=== PATIENT | female | born 1960 | race Caucasian/White ===

== ENCOUNTER 2018-09-25 16:11 | Inpatient (IN) ==
[2018-09-25] MEDS ORDERED: ASPIRIN PO ONE (16:46)
[2018-09-25] MEDS ORDERED: DUONEB (A & A) INH ONE (17:10)
[2018-09-25] MEDS ORDERED: XANAX MISC ONE (17:11)
[2018-09-25] MEDS ORDERED: SOLU-MEDROL IV ONE (17:12)
[2018-09-25 17:27] LABS: BASO# 0.02 X1000 (0.0-0.2); BASO% 0.3 % (0.0-0.8); EOS# 0.03 X1000 (0.0-0.7); EOS% 0.4 % (0.0-10.0); HEMOGLOBIN 13.6 g/dL (12.0-16.0); LYMPH# 0.69 X1000 (1.2-3.4); LYMPH% 9.2 % (20.5-51.1); MCH 30.9 PG (27-31); MCV 90.9 FL (81-99); MONO# 1.73 X1000 (0.11-0.59); MONO% 23.1 % (1.7-9.3); MPV 9.7 FL (7.4-10.4); NEUT# 5.01 X1000 (1.4-6.5); PLT 257 X1000 (130-400); RDW 13.3 % (11.5-14.5); WBC 7.48 X1000 (4.8-10.8)
[2018-09-25 17:32] LABS: INR 1.02; PROTIME 14.2 Seconds (11.0-16.0)
[2018-09-25 17:33] LABS: PTT 36.5 Seconds (22.3-41.8)
[2018-09-25 17:39] LABS: BANDS 24 % (0-1); BASO 1 % (0-1); LYMPHS 15 % (21-51); MONO 17 % (1-9); SEGS 43 % (42-75)
[2018-09-25 17:41] LABS: AGAP 12; ALB/GLOB RATIO 1.6; ALBUMIN 4.1 g/dL (3.5-5.0); ALKALINE PHOSPHATASE 80 U/L (32-104); BUN 15 mg/dL (8-22); CALCIUM 9.1 mg/dL (8.8-10.2); CHLORIDE 100 mmol/L (98-107); CK PROFILE 145 U/L (24-173); COSMO 279; CREATININE 0.6 mg/dL (0.5-0.9); ESTIMATED GFR > 60; GLUCOSE 112 mg/dL (70-104); GOT 23 U/L (10-30); GPT 25 U/L (10-36); POTASSIUM 4.6 mmol/L (3.5-5.1); SODIUM 139 mmol/L (136-145); TCO2 27 mmol/L (25-35); TOTAL BILIRUBIN 0.34 mg/dL (0.20-1.00); TOTAL PROTEIN 6.7 g/dL (6.3-8.3)
--- NOTE | 2018-09-25 17:41 | Diag Imaging Result Doc PS360 ---
EXAM: CHEST-2 VIEWS 09/25/2018 HISTORY: SOB TECHNIQUE: PA and lateral chest COMMENT: There is COPD. There is increased interstitial opacity in the lung bases. This is slightly worse than on 10/09/2017. The heart size and pulmonary vascularity are within normal limits. IMPRESSION: COPD with superimposed pulmonary edema plus minus pneumonia. Electronically signed by Isrrael Soria 09/25/2018 5:38 PM
[2018-09-25] MEDS ORDERED: DUONEB (A & A) ONE (17:47)
[2018-09-25 17:57] LABS: ALLEN TEST YES; BE 2.9 mmoll (-3.0-3.0); BLOOD TYPE ARTERIAL; HCO3-(ACT) 27.1 mmoll (20.0-26.0); METHB 1.4 % (0.0-1.5); O2(CT) 18.4 mL/dL (15.0-23.0); O2HB 95.2 % (95.0-99.0); PO2(98.6) 91 mmHg (60-100); SAMPLE BLOOD; SAO2 98.4 % (95.0-100.0); THB 13.7 g/dL (11.5-17.4); pH(98.6) 7.35 (7.35-7.45)
[2018-09-25 17:59] LABS: MODALITY CANNULA
[2018-09-25 18:00] LABS: PCO2(98.6) 54 mmHg (35-45)
[2018-09-25] MEDS ORDERED: LEVAQUIN 750 MG/D5W 750 MG/150 ML IVPB IV ONE (18:21)
--- NOTE | 2018-09-25 19:11 | PROVIDER DOCUMENTATION ---
This chart was entered by Sadie Yan Scribe, acting as scribe for Adolfo Crisostomo DO. HPI-Respiratory General - General Chief Complaint: Shortness of Breath Stated Complaint: copd , sob Time Seen by Provider: 09/25/18 16:24 Source: patient, EMS Allergies/Adverse Reactions: Patient Allergies Allergy/AdvReac Type Severity Reaction Status Date / Time No Known Allergies Allergy Verified 09/25/18 18:41 Home Medications: Home Medication List Medication Instructions Recorded Confirmed Last Taken Type Albuterol 2.5MG/Ipratrop 0.5MG 3 ml INH PL2ULTY #120 neb 08/04/17 09/25/18 09/25/18 Rx [Duoneb] - History of Present Illness-Resp Nature of Presenting Problem: 57 yowf presents to the ed with c/o sob. pt has hx copd and is a smoker. pt on exam is at 5LPM 94%, cough, nausea and tightness in thoracic back. pt speaking in 2-4 word sentences Quality of Pain: reports: fullness Severity in ED: reports: moderate Onset/Duration: reports: 3 days ago Timing: reports: still present, intermittent, getting worse Cough Quality/Degree: reports: moderate, productive cough Episode Frequency: chronic episodes Current Respiratory Medication Therapy: Initiated see nurses note Modifying Factors: improves with: albuterol nebulizer, oxygen, sitting upright. worse with: exertion, lying down Associated Symptoms: reports: cough, shortness of breath, wheezing, other (nausea and thoracic back pain). denies: chest pain/soreness, fever/chills, headache Similar Symptoms Previously?: Yes (copd) Recently seen or treated by another doctor?: No Review of Systems - Adult - REVIEW OF SYSTEMS - ADULT Constitutional: denies: chills, fever Eyes: reports: no symptoms reported Ears, Nose, Mouth & Throat: reports: no symptoms reported Cardiovascular: denies: chest pain, palpitations, syncope Respiratory: reports: see HPI, chronic cough, dyspnea on exertion, shortness of breath, wheezing Gastrointestinal: reports: nausea. denies: abdominal pain, diarrhea, vomiting Genitourinary: reports: no symptoms reported Musculoskeletal: reports: see HPI, back pain (thoracic tightness). denies: neck pain Integumentary: reports: no symptoms reported Neurological: reports: no symptoms reported Psychiatric: reports: no symptoms reported Endocrine: reports: no symptoms reported Hematologic/Lymphatic: reports: no symptoms reported Allergic/Immunologic: reports: no symptoms reported All Other Systems: Reviewed and Negative Past History - Adult - PAST MEDICAL HISTORY-ADULT Review of Records: reports: Nursing Assessment Review, Medications Reviewed Major Childhood Illnesses: reports: denies history Cardiovascular: reports: denies history Respiratory: reports: COPD Gastrointestinal: reports: GERD Obstetrical/Gynecological: reports: denies history Genitourinary: reports: denies history Musculoskeletal: reports: denies history Hand Dominance: Right Handed Neurological: reports: denies history Endocrine/Immune: reports: denies history Other Conditions: reports: denies history - PRIOR SURGERIES/PROCEDURES Surgical/Procedure History: reports: cholecystectomy - IMMUNIZATION STATUS Childhood Immunizations: See Nurse Assessment Flu Vaccine: See Nurse Assessment - FAMILY HISTORY Family History: reviewed, not pertinent - SOCIAL HISTORY Smoking: cigarettes, less than 1 pack/day Substance Use: denies Alcohol Use Frequency: never Living Situation: family Physical Exam-General - PHYSICAL EXAM-ADULT Initial Vital Signs Reviewed: Yes - CONSTITUTIONAL General Appearance: alert, moderate distress, thin - EYES Eyes: PERRL/EOMI, pink conjunctivae - HEAD, EARS, NOSE, MOUTH & THROAT HENMT: moist mucous membranes, other (no teeth) - NECK Neck: non-tender, normal inspection - RESPIRATORY Respiratory: respiratory distress (moderate), decreased breath sounds (lower half), accessory muscle use, wheezing (bilateral upper), increased rate (24) - CARDIOVASCULAR Cardiovascular: normal peripheral pulses, JVD, tachycardia (102) - GASTROINTESTINAL (ABDOMEN) Abdominal Exam: normal bowel sounds, non tender, soft - LYMPHATIC Lymphatic: no adenopathy - MUSCULOSKELETAL Back Exam: normal inspection, no CVA tenderness, no vertebral tenderness, other (thoracic tightness) Extremity: normal range of motion, non-tender, normal inspection, no pedal edema , no calf tenderness, normal capillary refill, pelvis stable - SKIN Integumentary: normal color, normal turgor, warm/dry - NEUROLOGIC Neurologic: grossly normal, no motor/sensory deficits - PSYCHIATRIC Psych/Mental Status: normal thought content, normal thought process, oriented x 3, anxious Progress - PLAN OF CARE/RESULTS Progress/Plan/Lab Results: Vital Signs - 8 hr 09/25/18 16:30 09/25/18 16:33 09/25/18 17:02 Temperature 98.1 F Pulse Rate 98 H Respiratory Rate 20 Blood Pressure 110/73 100/73 102/80 O2 Sat by Pulse Oximetry 95 85 L 95 09/25/18 18:00 09/25/18 18:01 Temperature Pulse Rate 104 H 111 H Respiratory Rate 22 Blood Pressure O2 Sat by Pulse Oximetry 98 97 Laboratory Results - last 24 hr 09/25/18 09/25/18 09/25/18 16:55 16:55 16:55 WBC 7.48 RBC 4.40 Hgb 13.6 Hct 40.0 MCV 90.9 MCH 30.9 MCHC 34.0 RDW Std Deviation 13.3 Plt Count 257 MPV 9.7 Immature Gran % (Auto) 0.0 Neut % (Auto) 67.0 Lymph % (Auto) 9.2 L [place] % (Auto) 23.1 H Eos % (Auto) 0.4 Baso % (Auto) 0.3 Immature Gran # (Auto) 0.00 Neut # (Auto) 5.01 Lymph # (Auto) 0.69 L [place] # (Auto) 1.73 H Eos # (Auto) 0.03 Baso # (Auto) 0.02 Segmented Neutrophils 43 Band Neutrophils 24 H Lymphocytes 15 L Monocytes 17 H Basophils 1 PT INR PTT (Actin FS) Specimen Type Sample Site pH pCO2 pO2 HCO3 Base Excess Oxyhemoglobin ABG O2 Sat (Calculated) ABG O2 Saturation ABG Carboxyhemoglobin ABG Methemoglobin René Test A-a O2 Difference Total Hemoglobin Lactate Liter Flow Blood Gas Modality FiO2 % Sodium 139 Potassium 4.6 Chloride 100 Carbon Dioxide 27 Anion Gap 12 BUN 15 Creatinine 0.6 Estimated GFR/1.73 m2 > 60 BUN/Creatinine Ratio 25 Glucose 112 H Calculated Osmolality 279 Calcium 9.1 Total Bilirubin 0.34 AST 23 ALT 25 Alkaline Phosphatase 80 Creatine Kinase 145 Troponin T [id number] Pept 281 H Total Protein 6.7 Albumin 4.1 Globulin 2.6 Albumin/Globulin Ratio 1.6 09/25/18 09/25/18 09/25/18 16:55 16:55 17:45 WBC RBC Hgb Hct MCV MCH MCHC RDW Std Deviation Plt Count MPV Immature Gran % (Auto) Neut % (Auto) Lymph % (Auto) [place] % (Auto) Eos % (Auto) Baso % (Auto) Immature Gran # (Auto) Neut # (Auto) Lymph # (Auto) [place] # (Auto) Eos # (Auto) Baso # (Auto) Segmented Neutrophils Band Neutrophils Lymphocytes Monocytes Basophils PT 14.2 INR 1.02 PTT (Actin FS) 36.5 Specimen Type ARTERIAL Sample Site R RADIAL pH 7.35 pCO2 54 H* pO2 91 HCO3 27.1 H Base Excess 2.9 Oxyhemoglobin 95.2 ABG O2 Sat (Calculated) 18.4 ABG O2 Saturation 98.4 ABG Carboxyhemoglobin 1.80 ABG Methemoglobin 1.4 René Test YES A-a O2 Difference 127.0 Total Hemoglobin 13.7 Lactate 0.70 Liter Flow 5.0 Blood Gas Modality CANNULA FiO2 % 40.0 Sodium Potassium Chloride Carbon Dioxide Anion Gap BUN Creatinine Estimated GFR/1.73 m2 BUN/Creatinine Ratio Glucose Calculated Osmolality Calcium Total Bilirubin AST ALT Alkaline Phosphatase Creatine Kinase Troponin T < 0.010 [id number]-Jrihisiusvh Pept Total Protein Albumin Globulin Albumin/Globulin Ratio Orders Category Date Time Status Cardiac Monitoring DIRECTED Care 09/25/18 16:46 Active Oxygen Therapy- ED Nursing DIRECTED Care 09/25/18 16:46 Active CHEST-2 VIEWS [RAD] Stat Exams 09/25/18 16:46 Completed CHEST-PORTABLE [RAD] Stat Exams 09/25/18 17:11 Ordered ABG [RESP] Routine Lab 09/25/18 17:45 Completed BLOOD CULTURE [BLDCUL] Stat Lab 09/25/18 18:59 Ordered CBC WITH ELECTRONIC DIFF [HEME] Stat Lab 09/25/18 16:55 Completed CK PROFILE [SP CHEM] Stat Lab 09/25/18 16:55 Completed COMPREHENSIVE METABOLIC PANEL [CHEM] Stat Lab 09/25/18 16:55 Completed PRO B-NATRIURETIC PEPTIDE Stat Lab 09/25/18 16:55 Completed PROTIME WITH INR [COAG] Stat Lab 09/25/18 16:55 Completed PTT [COAG] Stat Lab 09/25/18 16:55 Completed TROPONIN T Stat Lab 09/25/18 16:55 Completed Albuterol 2.5MG/Ipratrop 0.5MG [Duoneb (A & A)] Med 09/25/18 17:47 Discontinued 3 ml .ROUTE .STK-MED ONE Albuterol 2.5MG/Ipratrop 0.5MG [Duoneb (A & A)] Med 09/25/18 17:10 Discontinued 3 ml INH NOW ONE Alprazolam [Xanax] Med 09/25/18 17:11 Discontinued 0.5 mg MISC NOW ONE Aspirin Med 09/25/18 16:46 Discontinued 325 mg PO NOW ONE Levofloxacin 750 mg/D5w [Levaquin 750 mg/D5w] Med 09/25/18 18:21 Active 750 mg in 150 ml IV NOW Methylprednisolone Sod Succ [Solu-Medrol] Med 09/25/18 17:12 Discontinued 125 mg IV NOW ONE Aerosol Treatments Routine Oth 09/25/18 17:10 Completed Aerosol Treatments Stat Oth 09/25/18 17:10 Completed CP/SOB/Palp >45 yrs of Age Stat Oth 09/25/18 16:46 Ordered EKG [EKG] Stat Ther 09/25/18 16:46 Ordered Result Diagrams: 09/25/18 16:55 09/25/18 16:55 - REASSESSMENT Reassessment #1 Time Reassessed: 17:22 Status: unchanged Reassessment #2 Status: improving (DISCUSSED XRAYS,LABS ADMISSIONS) - EKG 1 Time of EKG reading by physician:: 16:33 EKG Read and Signed by:: Adolfo Crisostomo EKG Interpretation (*Must complete 3 of following elements*): Abnormal Rate: 119 Rhythm: sinus tachycardia with short pr [place]: right QRS: other (right atrial enlargement/pulmonary disease pattern) OK Interval: normal ST Wave: normal Comments: nonspecific ST and T wave abnormality - CONSULTS/PCP/HOSPITALIST Notification #1 *Consult/PCP/Hospitalist*: Time Discussed: 19:05 (ADMISSION ) Departure - Departure Date of Disposition Decision: 09/25/18 Time of Disposition Decision: 19:04 DIAGNOSIS: COPD exacerbation, Respiratory distress, acute, Pneumonia Disposition: ADMITTED INPATIENT 09 Certified Medical Emergency: Emergent Condition: Stable Referrals and Follow-Ups: None,PCP [Primary Care Provider] - Discharge Education: Steps to Quit Smoking, [id number] - Critical Care Note This patient required my direct & personal management of CC.: Yes Total Time (mins): 39 Critical Care Statement: This patient required my direct personal management to treat or rule out processes, the absence of which, could potentiallly result in sudden, clinically significant life or limb threatening deterioration. Attestation - Physician/ MARYJANE Attestation Patient care was provided by Advanced Practice Provider:: No The physician spent face to face time with patient:: Yes Advanced Practice Provider documentation review:: Supervising physician onsite and consulted in the evaluation and care of this patient. The physician did have a face to face encounter with the patient. This chart was documented by the indicated scribe, (Sadie Yan Scribe) and accurately reflects the services I performed and decisions made by me, Adolfo Crisostomo DO, as attested by the provider's signature.
[2018-09-25] MEDS ORDERED: LEVAQUIN PO ONE (19:15)
--- NOTE | 2018-09-25 20:36 | HISTORY AND PHYSICAL ---
CHIEF COMPLAINT: Shortness of breath. HISTORY OF PRESENT ILLNESS: This 57-year-old white female states that 2 days prior to admission, she began to experience worsening shortness of breath. She stated for inexplicable reason she had fever to 103. Although she has a routine hacking cough, she began coughing up little bits of material over the last 2 days as well. She had progressive shortness of breath, worsening wheezing and difficulty catching her breath at all. She came to the emergency room and was diagnosed with an acute exacerbation of COPD and is admitted to the hospitalist service. It appears according to the computer record that she has not been admitted since sometime last year in July. Her presentation was almost identical. PAST MEDICAL HISTORY: 1. The patient denies any problems other than COPD. She is oxygen dependent at 3 L nasal cannula. I am not sure who writes that prescription for her. 2. The patient is still a tobacco user. In the past she has been a pack per day but she says it is cut down significantly. ALLERGIES: No known drug allergies. PRESENT MEDICATIONS: Albuterol aerosols q.4 hours. REVIEW OF SYSTEMS: Patient denies any further fever other than that on Friday night when it went to 103. She has not had any shaking chills or rigors. She has a cough which is minimally productive. She has difficulty moving air. She continues to wheeze. She has not had any nausea or vomiting. She has no abdominal pain. She denies any genitourinary complaints. Her neuro psych has been intact and at baseline. PHYSICAL EXAMINATION: The patient is a very thin white female who is working to breathe but is not in extremis. HEENT: Sclerae are anicteric. The patient is edentulous. Coloration and hydration of the oral mucosa is roughly normal. NECK: Very thin. There is no lymphadenopathy. There are no bruits heard. CARDIOVASCULAR: Regular, tachycardia at approximately 110 beats per minute the time my examination. LUNGS: The patient has very poor air movement and has a body habitus consistent with someone with severe emphysema. She is not moving air well. She speaks in 2 to 4 words short bursts. Again, she is working to breathe, but is not in extremities right now. ABDOMEN: Bowel sounds are present. Nondistended. EXTREMITIES: There is no peripheral edema. Peripheral pulses are palpable in the dorsalis pedis. NEUROPSYCHIATRIC: The patient is alert, oriented, conversive and appropriate. Her mood is appropriate as well. LABORATORY: White count 7.48, hemoglobin 13.6. Serum electrolytes are normal. BUN 15, creatinine 0.6. Liver function tests are normal. CK and troponin are normal. ProBNP was 281. ABG showed a respiratory acidosis with a pH 7.35, pCO2 54, PO2 of 91 and 98% saturated on 5 L nasal cannula. ASSESSMENT AND PLAN: 1. The patient will be admitted to the hospital. She will have q.4 hour aerosol treatments. We will continue the steroids which were initiated in the emergency room at a slightly lower dose and rate. I am a bit reluctant to continue the antibiotics but since she was given some in the emergency room and she did have fever with her initial symptoms on Friday, we will continue some Levaquin but by p.o. route. 2. The patient will be activity limited to bedrest with bathroom privileges. She will have oxygen at 5 L. She will have a soft diet given that she is edentulous. 3. Expected length of stay is anywhere from 2 to 4 days, assuming that we can rapidly turn around her breathing. 4. At discharge, the patient is likely to need refills of prescriptions as she has no PCP. 5. Resuscitation status full code. cc: Domenic Deluna MD
[2018-09-25] MEDS ORDERED: ZOFRAN PO PRN (21:41)
[2018-09-25] MEDS ORDERED: NS 1,000 ML IV ONE (21:41)
[2018-09-25] MEDS: DUONEB (A & A) INH SCH ×2 (23:24)
[2018-09-26] MEDS: SOLU-MEDROL IV SCH ×3 (02:18→17:56)
[2018-09-26] MEDS: TYLENOL PO PRN ×2 (02:20→21:49)
[2018-09-26] MEDS: DUONEB (A & A) INH SCH ×6 (03:39→23:26)
[2018-09-26 05:52] LABS: ALLEN TEST YES; BE 1.1 mmoll (-3.0-3.0); BLOOD TYPE ARTERIAL; HCO3-(ACT) 25.8 mmoll (20.0-26.0); METHB 1.4 % (0.0-1.5); O2(CT) 17.6 mL/dL (15.0-23.0); O2HB 96.8 % (95.0-99.0); PO2(98.6) 166 mmHg (60-100); SAMPLE BLOOD; SAO2 99.4 % (95.0-100.0); THB 12.7 g/dL (11.5-17.4); pH(98.6) 7.33 (7.35-7.45)
[2018-09-26 05:53] LABS: MODALITY CANNULA
[2018-09-26 05:58] LABS: PCO2(98.6) 53 mmHg (35-45)
[2018-09-26 07:36] LABS: HEMATOCRIT 40.4 % (37.0-47.0); HEMOGLOBIN 13.5 g/dL (12.0-16.0); LYMPH# 0.45 X1000 (1.2-3.4); MCH 30.9 PG (27-31); MCHC 33.4 g/dL (33-37); MCV 92.4 FL (81-99); MONO% 5.3 % (1.7-9.3); MPV 9.5 FL (7.4-10.4); NEUT# 3.11 X1000 (1.4-6.5); NEUT% 82.7 % (42.2-75.2); PLT 257 X1000 (130-400); RBC 4.37 XMIL (4.2-5.4); RDW 13.3 % (11.5-14.5); WBC 3.76 X1000 (4.8-10.8)
[2018-09-26 07:47] LABS: AGAP 10; BUN 20 mg/dL (8-22); CALCIUM 8.4 mg/dL (8.8-10.2); CHLORIDE 98 mmol/L (98-107); COSMO 278; CREATININE 0.5 mg/dL (0.5-0.9); ESTIMATED GFR > 60; GLUCOSE 120 mg/dL (70-104); POTASSIUM 4.9 mmol/L (3.5-5.1); SODIUM 137 mmol/L (136-145); TCO2 29 mmol/L (25-35)
--- NOTE | 2018-09-26 13:48 | PROGRESS NOTE ---
DATE: 09/26/2018 SUBJECTIVE: Ms Walsh is breathing a little better, feels a little better. OBJECTIVE: Vital signs: Temperature 98 degrees, pulse 74, respirations 18, blood pressure 89/55. HEENT: Pupils are equal and round. Lungs: Clear in all lung [place]. Cardiovascular: Regular rhythm and rate without murmur or S3. ABDOMEN: Soft. LABORATORY DATA: From yesterday, white count 3760, hematocrit is 40, platelet count 257,000. Sodium 137, potassium 4.9, chloride 98, BUN 20, creatinine 0.5. Blood gases from yesterday afternoon, pH was 7.33, pCO2 53, PO2 166 which came up from 91, this is on 5 L nasal cannula, 40%. ASSESSMENT AND PLAN: This is a 67-year-old who, 2 days prior to this admission, began experiencing worsening shortness of breath. She had a fever of 103 degrees, a routine cough, began coughing up little bits of material, seemed to be more productive and progressive shortness of breath. She had 4 hour aerosol treatments q.4 hours and some steroids were started. She is getting Levaquin p.o. route. Note that her chest x-ray from yesterday, COPD with superimposed pulmonary edema plus-minus possible pneumonia. Treating for possible pneumonia, underlying COPD. Continue present regimen. She is on methylprednisone this concludes dictation. cc: René Vu MD
[2018-09-26] MEDS ORDERED: LEVAQUIN PO SCH (18:00)
[2018-09-27] MEDS: SOLU-MEDROL IV SCH ×2 (02:42→10:22)
[2018-09-27] MEDS: DUONEB (A & A) INH SCH ×3 (03:05→10:59)
--- NOTE | 2018-09-27 08:21 | Diag Imaging Result Doc PS360 ---
EXAM: CHEST-PORTABLE 09/27/2018 HISTORY: copd, pneumonia TECHNIQUE: AP portable at 0811 COMMENT: There are increased interstitial markings in the lung bases bilaterally. There is lungs are hyperinflated. The heart size and pulmonary vascularity are within normal limits. Compared to 09/25/2018 there has been some clearing of the left costophrenic angle. IMPRESSION: COPD. Slightly improved pulmonary edema and/or pneumonia. Electronically signed by Isrrael Soria 09/27/2018 8:18 AM
[2018-09-27 11:52] VITALS: BP 89/44
--- NOTE | 2018-09-27 12:50 | DISCHARGE SUMMARY ---
ADMISSION DATE: 09/25/2018 DISCHARGE DATE: 09/27/2018 PRIMARY CARE PHYSICIAN: She has no primary care physician. HISTORY OF PRESENT ILLNESS: This is a 57-year-old who, 2 days prior to admission, began experiencing worsening shortness of breath. She had a fever of 103 and routine hacking cough, and coughing up bits of material. The last couple days, progressive shortness of breath, worsening wheezing. Came to the emergency room. Appeared to be in acute exacerbation of COPD with some wheezing and bronchospasm. PAST MEDICAL HISTORY: Really denies any other problems other than COPD and still a tobacco user. HOSPITAL COURSE: On admission, chest x-ray, COPD, superimposed pulmonary edema, plus or minus some pneumonia. Started her on antibiotics and bronchodilators, albuterol and ipratropium, Levaquin 500 mg p.o. daily. I gave her some methylprednisone 40 mg IV q.8 and she showed quite a remarkable improvement. On 09/27/2018, she requested to go home so we will discharge her home. She has home oxygen already. She has DuoNebs at home. I will give her a Medrol Dosepak and give her 7 days of Levaquin 500 mg daily. Note that blood cultures were negative. Nasopharyngeal screen was negative for influenza A and B. cc: René Vu MD
--- NOTE | 2018-09-28 08:31 | EKG Report ---
Test Performed on : 09/25/2018 4:33:13 PM Test Reason : SOB Blood Pressure : / mmHG Vent. Rate : 119 BPM Atrial Rate : 119 BPM P-R Int : 100 ms QRS Dur : 056 ms QT Int : 296 ms P-R-T Axes : 084 090 096 degrees QTc Int : 416 ms Sinus tachycardia. with short FL Right atrial enlargement Rightward axis Pulmonary disease pattern Nonspecific ST and T wave abnormality Abnormal ECG When compared with ECG of 09-OCT-2017 23:07, Nonspecific T wave abnormality, worse in Inferior leads Unconfirmed Result
== END 2018-09-27 14:25 | disposition home or self-care (01) | DRG 190 ==
LOC: SUPCPDRO → ED 16:11 → EDIPHOLD 21:42 → SUATTDRO 21:42 → 3N 23:50
PROVIDERS: ATTEND Emergency Medicine
CPT/HCPCS: 71010; 71020; 71045; 71046; 80048; 80053; 82550; 82805; 83880; 84484; 85025; 85610; 85730; 87040; 87275; 87276; 87804; 93005; 94640; 94761; 96365; 96366; 96375; 99285; A9270; J1956; J2920; J2930; J7030

== ENCOUNTER 2019-08-03 12:15 | Inpatient (IN) ==
[2019-08-03] MEDS ORDERED: SOLU-MEDROL IV ONE (12:36)
[2019-08-03] MEDS ORDERED: ZITHROMAX PO ONE (12:36)
[2019-08-03] MEDS ORDERED: ROCEPHIN 1 GM in NS 50 ML IV ONE (12:36)
--- NOTE | 2019-08-03 12:39 | EKG Report ---
Test Performed on : 08/03/2019 12:33:08 PM Test Reason : Blood Pressure : / mmHG Vent. Rate : 110 BPM Atrial Rate : 110 BPM P-R Int : 116 ms QRS Dur : 074 ms QT Int : 310 ms P-R-T Axes : 080 089 073 degrees QTc Int : 419 ms Sinus tachycardia. Right atrial enlargement Borderline ECG When compared with ECG of 25-SEP-2018 16:33, Nonspecific T wave abnormality no longer evident in Inferior leads Unconfirmed Result
[2019-08-03 12:53] LABS: ALLEN TEST YES; BE 2.3 mmoll (-3.0-3.0); BLOOD TYPE ARTERIAL; HCO3-(ACT) 26.5 mmoll (20.0-26.0); METHB 0.2 % (0.0-1.5); PCO2(98.6) 39 mmHg (35-45); PO2(98.6) 51 mmHg (60-100); SAMPLE BLOOD; SAO2 94.3 % (95.0-100.0); THB 13.8 g/dL (11.5-17.4); pH(98.6) 7.44 (7.35-7.45)
[2019-08-03 12:55] LABS: MODALITY ROOM AIR; O2HB 87.7 % (95.0-99.0)
[2019-08-03 12:56] LABS: BASO# 0.03 X1000 (0.0-0.2); BASO% 0.3 % (0.0-0.8); EOS# 0.01 X1000 (0.0-0.7); EOS% 0.1 % (0.0-10.0); HEMATOCRIT 43.6 % (37.0-47.0); HEMOGLOBIN 14.7 g/dL (12.0-16.0); IMM GRAN# 0.03 X1000 (0.0-0.04); IMM GRAN% 0.3 % (0.0-0.5); LYMPH# 1.29 X1000 (1.2-3.4); LYMPH% 11.4 % (20.5-51.1); MCH 31.8 PG (27-31); MCHC 33.7 g/dL (33-37); MCV 94.4 FL (81-99); MONO# 1.26 X1000 (0.11-0.59); MONO% 11.2 % (1.7-9.3); MPV 9.2 FL (7.4-10.4); NEUT# 8.66 X1000 (1.4-6.5); NEUT% 76.7 % (42.2-75.2); PLT 226 X1000 (130-400); RBC 4.62 XMIL (4.2-5.4); RDW 12.4 % (11.5-14.5); WBC 11.28 X1000 (4.8-10.8)
--- NOTE | 2019-08-03 13:11 | Diag Imaging Result Doc PS360 ---
EXAM: CHEST-2 VIEWS HISTORY: short of breath TECHNIQUE: Two views COMPARISON: 05/27/2019 FINDINGS: The lungs are hyperexpanded. The heart is not enlarged. The vessels are small. There are no infiltrates. No pleural effusions. IMPRESSION: Interval Electronically signed by Ezekiel Pierson 08/03/2019 1:09 PM
[2019-08-03 13:15] LABS: AGAP 15; ALB/GLOB RATIO 1.4; ALBUMIN 4.1 g/dL (3.5-5.0); ALKALINE PHOSPHATASE 72 U/L (32-104); BUN 14 mg/dL (8-22); CALCIUM 9.5 mg/dL (8.8-10.2); CHLORIDE 93 mmol/L (98-107); COSMO 270; CREATININE 0.7 mg/dL (0.5-0.9); ESTIMATED GFR > 60; GLUCOSE 87 mg/dL (70-104); GOT 17 U/L (10-30); GPT 18 U/L (10-36); SODIUM 135 mmol/L (136-145); TCO2 27 mmol/L (25-35); TOTAL BILIRUBIN 1.19 mg/dL (0.20-1.00); TOTAL PROTEIN 7.1 g/dL (6.3-8.3)
[2019-08-03 13:48] LABS: URINE SOURCE CLEAN CATCH
[2019-08-03 13:51] LABS: BILIRUBIN URINE NEGATIVE (NEGATIVE); BLOOD URINE SMALL (NEGATIVE); COLOR YELLOW; GLUCOSE URINE NEGATIVE (NEGATIVE); KETONE URINE 100 mg/dL (NEGATIVE); LEUKOCYTES URINE MODERATE (NEGATIVE); NITRITE URINE NEGATIVE (NEGATIVE); PROTEIN URINE 50 mg/dL (NEGATIVE); SP GRAVITY URINE 1.025; TURBIDITY URINE CLEAR (CLEAR); UROBILINOGEN URINE 8 mg/dL (NORMAL)
[2019-08-03 13:58] LABS: UR EPITHELIAL CELLS <10 /HPF (<10); URINE BACTERIA NEGATIVE /HPF; URINE RBC <10 /HPF (<10); URINE WBC <10 /HPF (<10)
--- NOTE | 2019-08-03 15:02 | PROVIDER DOCUMENTATION ---
This chart was entered by Sadie Yan Scribe, acting as scribe for Reji Crisostomo MD. HPI-Respiratory General - General Chief Complaint: Shortness of Breath Stated Complaint: SOB since yesterday Time Seen by Provider: 08/03/19 12:30 Source: patient, EMS ([facility]) Allergies/Adverse Reactions: Patient Allergies Allergy/AdvReac Type Severity Reaction Status Date / Time No Known Allergies Allergy Verified 09/25/18 18:41 Home Medications: Home Medication List Medication Instructions Recorded Confirmed Last Taken Type Albuterol 2.5MG/Ipratrop 0.5MG 08/03/19 Unknown History [Duoneb (A & A)] Albuterol Sulfate [Proair Hfa] 08/03/19 Unknown History Budesonide/Formoterol Fumarate 08/03/19 08/03/19 Unknown History [Symbicort 160-4.5 Mcg Inhaler] - History of Present Illness-Resp Nature of Presenting Problem: 58 yowf presents to the ed via ems with worsening sob since last night. pt is still currently 1ppd smoker with copd. pt on exam is thin in mild distress and uses continuos home O2 at 2LPM but has 35 feet of tubing Quality of Pain: reports: none Severity in ED: reports: moderate Onset/Duration: reports: last night (chronic sob but became worse last night) Timing: reports: still present, constant, getting worse Cough Quality/Degree: reports: mild, dry cough Episode Frequency: chronic episodes Current Respiratory Medication Therapy: Initiated see nurses note Modifying Factors: improves with: oxygen, sitting upright. worse with: exertion, coughing Associated Symptoms: reports: cough, shortness of breath. denies: chest pain/soreness, sweaty, wheezing Similar Symptoms Previously?: Yes (copd) Recently seen or treated by another doctor?: No Review of Systems - Adult - REVIEW OF SYSTEMS - ADULT Constitutional: denies: chills, fever Eyes: reports: no symptoms reported Ears, Nose, Mouth & Throat: reports: no symptoms reported Cardiovascular: denies: chest pain, palpitations Respiratory: reports: see HPI, chronic cough, dyspnea on exertion, shortness of breath. denies: wheezing Gastrointestinal: denies: abdominal pain, diarrhea, nausea, vomiting Genitourinary: reports: no symptoms reported Musculoskeletal: reports: no symptoms reported Integumentary: reports: no symptoms reported Neurological: denies: dizziness/vertigo, headache/migraines Psychiatric: reports: no symptoms reported Endocrine: reports: no symptoms reported Hematologic/Lymphatic: reports: no symptoms reported Allergic/Immunologic: reports: no symptoms reported All Other Systems: Reviewed and Negative Past History - Adult - PAST MEDICAL HISTORY-ADULT Review of Records: reports: Nursing Assessment Review, Medications Reviewed, Social history reviewed & non-contributory. Major Childhood Illnesses: reports: denies history Cardiovascular: reports: denies history Respiratory: reports: COPD, lung disease Gastrointestinal: reports: denies history Obstetrical/Gynecological: reports: denies history Genitourinary: reports: denies history Musculoskeletal: reports: denies history Neurological: reports: denies history Psychiatric: reports: denies history Endocrine/Immune: reports: denies history Other Conditions: reports: denies history - PRIOR SURGERIES/PROCEDURES Surgical/Procedure History: reports: cholecystectomy - IMMUNIZATION STATUS Childhood Immunizations: See Nurse Assessment Flu Vaccine: See Nurse Assessment - FAMILY HISTORY Family History: reviewed, not pertinent - SOCIAL HISTORY Smoking: cigarettes, greater than 1 pack/day Provider spent 3-5 mins advising pt. on dangers of tobacco.: Discussed manners to quit use, and f/u contacts for add'l counseling. Substance Use: denies Alcohol Use Frequency: never Living Situation: alone Physical Exam-General - PHYSICAL EXAM-ADULT Initial Vital Signs Reviewed: Yes - CONSTITUTIONAL General Appearance: alert, mild distress, thin - EYES Eyes: PERRL/EOMI, pink conjunctivae - HEAD, EARS, NOSE, MOUTH & THROAT HENMT: moist mucous membranes, other (no teeth) - NECK Neck: non-tender, full range of motion, supple, normal inspection - RESPIRATORY Respiratory: chest non-tender, respiratory distress, decreased breath sounds, rales (left base), other (still smokes 1 PPD) - CARDIOVASCULAR Cardiovascular: normal peripheral pulses, tachycardia (113) - CHEST (BREASTS) Chest/Breast: deferred - GASTROINTESTINAL (ABDOMEN) Abdominal Exam: normal bowel sounds, non tender, soft - GENITOURINARY Female Genitalia/Pelvic Exam: deferred Rectal Exam: deferred Hemoccult Exam: deferred - LYMPHATIC Lymphatic: no adenopathy - MUSCULOSKELETAL Back Exam: no CVA tenderness Extremity: normal range of motion, non-tender, normal inspection - SKIN Integumentary: normal color, normal turgor, warm/dry - NEUROLOGIC Neurologic: grossly normal - PSYCHIATRIC Psych/Mental Status: normal mood/affect, normal thought content, normal thought process, oriented x 3 - HEART Score HEART Score: History: Slightly Suspicious HEART Score: ECG: Normal HEART Score: Age: 45-65 Years HEART Score: Risk Factors for Atherosclerotic Disease: 1 or 2 Risk Factors HEART Score: Troponin: < or = Normal Limit Total HEART Score:: 2 Progress - PLAN OF CARE/RESULTS Progress/Plan/Lab Results: Vital Signs - 8 hr 08/03/19 12:20 Temperature 99 F Pulse Rate 113 H Respiratory Rate 24 Blood Pressure 146/89 O2 Sat by Pulse Oximetry 96 08/03/19 13:14 Influenza Screen - Final Nasopharyngeal Laboratory Results - last 24 hr 08/03/19 08/03/19 08/03/19 12:40 12:43 12:43 WBC RBC Hgb Hct MCV MCH MCHC RDW Std Deviation Plt Count MPV Immature Gran % (Auto) Neut % (Auto) Lymph % (Auto) Rowan % (Auto) Eos % (Auto) Baso % (Auto) Immature Gran # (Auto) Neut # (Auto) Lymph # (Auto) Rowan # (Auto) Eos # (Auto) Baso # (Auto) Specimen Type ARTERIAL Sample Site R RADIAL pH 7.44 pCO2 39 pO2 51 L HCO3 26.5 H Base Excess 2.3 Oxyhemoglobin 87.7 L* ABG O2 Sat (Calculated) 17.0 ABG O2 Saturation 94.3 L ABG Carboxyhemoglobin 6.80 H* ABG Methemoglobin 0.2 René Test YES A-a O2 Difference 50.0 Total Hemoglobin 13.8 Lactate 0.80 Blood Gas Modality ROOM AIR FiO2 % 21.0 Sodium 135 L Potassium 4.0 Chloride 93 L Carbon Dioxide 27 Anion Gap 15 BUN 14 Creatinine 0.7 Estimated GFR/1.73 m2 > 60 BUN/Creatinine Ratio 20 Glucose 87 Calculated Osmolality 270 Calcium 9.5 Magnesium 1.8 Total Bilirubin 1.19 H AST 17 ALT 18 Alkaline Phosphatase 72 Troponin T High Sens Agd-M-Zhktfymuisf Pept Total Protein 7.1 Albumin 4.1 Globulin 3.0 Albumin/Globulin Ratio 1.4 Plasma Lactate Urine Source Urine Color Urine Turbidity Urine pH Ur Specific Irma Urine Protein Ur Glucose (Stick) Ur Ketones (Stick) Urine Blood Urine Nitrite Urine Bilirubin Urobilinogen Dipstick Urine Leukocytes Urine WBC (Auto) Urine RBC (Auto) U Epithel Cells (Auto) Urine Bacteria (Auto) Urine Crystals Small Round Cells Urine Casts Urine Yeast-like Cells 08/03/19 08/03/19 08/03/19 12:43 12:43 12:43 WBC RBC Hgb Hct MCV MCH MCHC RDW Std Deviation Plt Count MPV Immature Gran % (Auto) Neut % (Auto) Lymph % (Auto) [place]an % (Auto) Eos % (Auto) Baso % (Auto) Immature Gran # (Auto) Neut # (Auto) Lymph # (Auto) Rowan # (Auto) Eos # (Auto) Baso # (Auto) Specimen Type Sample Site pH pCO2 pO2 HCO3 Base Excess Oxyhemoglobin ABG O2 Sat (Calculated) ABG O2 Saturation ABG Carboxyhemoglobin ABG Methemoglobin René Test A-a O2 Difference Total Hemoglobin Lactate Blood Gas Modality FiO2 % Sodium Potassium Chloride Carbon Dioxide Anion Gap BUN Creatinine Estimated GFR/1.73 m2 BUN/Creatinine Ratio Glucose Calculated Osmolality Calcium Magnesium Total Bilirubin AST ALT Alkaline Phosphatase Troponin T High Sens 24 H Hjf-Y-Epmkklzuzjm Pept 209 Total Protein Albumin Globulin Albumin/Globulin Ratio Plasma Lactate 1.2 Urine Source Urine Color Urine Turbidity Urine pH Ur Specific Irma Urine Protein Ur Glucose (Stick) Ur Ketones (Stick) Urine Blood Urine Nitrite Urine Bilirubin Urobilinogen Dipstick Urine Leukocytes Urine WBC (Auto) Urine RBC (Auto) U Epithel Cells (Auto) Urine Bacteria (Auto) Urine Crystals Small Round Cells Urine Casts Urine Yeast-like Cells 08/03/19 08/03/19 12:43 13:22 WBC 11.28 H RBC 4.62 Hgb 14.7 Hct 43.6 MCV 94.4 MCH 31.8 H MCHC 33.7 RDW Std Deviation 12.4 Plt Count 226 MPV 9.2 Immature Gran % (Auto) 0.3 Neut % (Auto) 76.7 H Lymph % (Auto) 11.4 L Rowan % (Auto) 11.2 H Eos % (Auto) 0.1 Baso % (Auto) 0.3 Immature Gran # (Auto) 0.03 Neut # (Auto) 8.66 H Lymph # (Auto) 1.29 Rowan # (Auto) 1.26 H Eos # (Auto) 0.01 Baso # (Auto) 0.03 Specimen Type Sample Site pH pCO2 pO2 HCO3 Base Excess Oxyhemoglobin ABG O2 Sat (Calculated) ABG O2 Saturation ABG Carboxyhemoglobin ABG Methemoglobin René Test A-a O2 Difference Total Hemoglobin Lactate Blood Gas Modality FiO2 % Sodium Potassium Chloride Carbon Dioxide Anion Gap BUN Creatinine Estimated GFR/1.73 m2 BUN/Creatinine Ratio Glucose Calculated Osmolality Calcium Magnesium Total Bilirubin AST ALT Alkaline Phosphatase Troponin T High Sens Cdj-A-Syljensxtap Pept Total Protein Albumin Globulin Albumin/Globulin Ratio Plasma Lactate Urine Source CLEAN CATCH Urine Color YELLOW Urine Turbidity CLEAR Urine pH 6.0 Ur Specific Irma 1.025 Urine Protein 50 A Ur Glucose (Stick) NEGATIVE Ur Ketones (Stick) 100 A Urine Blood SMALL A Urine Nitrite NEGATIVE Urine Bilirubin NEGATIVE Urobilinogen Dipstick 8 A Urine Leukocytes MODERATE A Urine WBC (Auto) <10 Urine RBC (Auto) <10 U Epithel Cells (Auto) <10 Urine Bacteria (Auto) NEGATIVE Urine Crystals Not Reportable Small Round Cells Not Reportable Urine Casts Not Reportable Urine Yeast-like Cells Not Reportable Orders Category Date Time Status Cardiac Monitoring DIRECTED Care 08/03/19 12:30 Active Saline Loc NOW Care 08/03/19 12:30 Active CHEST-2 VIEWS [RAD] Stat Exams 08/03/19 12:36 Completed ABG [RESP] Routine Lab 08/03/19 12:40 Completed CBC WITH ELECTRONIC DIFF [HEME] Stat Lab 08/03/19 12:43 Completed COMPREHENSIVE METABOLIC PANEL [CHEM] Stat Lab 08/03/19 12:43 Completed INFLUENZA SCREEN A/B Stat Lab 08/03/19 13:14 Completed LACTATE, PLASMA [CHEM] Stat Lab 08/03/19 12:43 Completed MAGNESIUM [CHEM] Stat Lab 08/03/19 12:43 Completed PRO B-NATRIURETIC PEPTIDE Stat Lab 08/03/19 12:43 Completed TROPONIN T HIGH SENSITIVITY Stat Lab 08/03/19 12:43 Completed URINALYSIS W/POSS RFLX CULT [URINALYSIS] Stat Lab 08/03/19 13:22 Completed URINE CULTURE [RM] Routine Lab 08/03/19 14:45 Received URINE MANUAL MICROSCOPIC [URINALYSIS] Stat Lab 08/03/19 13:22 Completed Azithromycin [Zithromax] Med 08/03/19 12:36 Discontinued 500 mg PO NOW ONE CefTRIAXONE [Rocephin] 1 gm Med 08/03/19 12:36 Discontinued 0.9% Sodium Chloride Inj [Ns] 50 ml IV NOW Methylprednisolone Sod Succ [Solu-Medrol] Med 08/03/19 12:36 Discontinued 125 mg IV NOW ONE EKG [EKG] Stat Ther 08/03/19 12:30 Draft Result Diagrams: 08/03/19 12:43 08/03/19 12:43 - REASSESSMENT Reassessment #1 Time Reassessed: 14:53 Status: improving (speaking easier and still tachypneic) - EKG 1 Time of EKG reading by physician:: 12:33 EKG Read and Signed by:: Reji Crisostomo EKG Interpretation (*Must complete 3 of following elements*): Normal (borderline) Rate: 110 Rhythm: sinus tachycardia [place]: normal QRS: normal [place] Interval: normal ST Wave: normal Comments: right atrial enlargement - XRAY 1 XRAY: Bilateral XRAY Study: Chest Impression: See EMR Report (EXAM: CHEST-2 VIEWS HISTORY: short of breath TECHNIQUE: Two views COMPARISON: 05/27/2019 FINDINGS: The lungs are hyperexpanded. The heart is not enlarged. The vessels are small. There are no infiltrates. No pleural effusions. IMPRESSION: Interval Electronically signed by Ezekiel Pierson 08/03/2019 1:09 PM 08/03/19 1309 Interpreting Physician: Ezekiel Pierson MD Dictated Date/Time: 08/03/19 130 cc: Reji Crisostomo MD; Red Nix MD) - CONSULTS/PCP/HOSPITALIST Notification #1 *Consult/PCP/Hospitalist*: dr nix Time Discussed: 14:57 Reason/Comments: phone consult Consult Disposition: Admit Departure - Departure Date of Disposition Decision: 08/03/19 Time of Disposition Decision: 15:00 DIAGNOSIS: Respiratory distress, COPD exacerbation, Tobacco use disorder, UTI (urinary tract infection) Disposition: ADMITTED INPATIENT 09 Certified Medical Emergency: Emergent Condition: Stable Referrals and Follow-Ups: Red Nix MD [Primary Care Provider] - - Critical Care Note This patient required my direct & personal management of CC.: Yes Total Time (mins): 36 Critical Care Statement: This patient required my direct personal management to treat or rule out processes, the absence of which, could potentiallly result in sudden, clinically significant life or limb threatening deterioration. Attestation - Physician/ MARYJANE Attestation Patient care was provided by Advanced Practice Provider:: No The physician spent face to face time with patient:: Yes Advanced Practice Provider documentation review:: Supervising physician onsite and consulted in the evaluation and care of this patient. The physician did have a face to face encounter with the patient. This chart was documented by the indicated scribe, (Sadie Yan Scribe) and accurately reflects the services I performed and decisions made by me, Reji Crisostomo MD, as attested by the provider's signature.
[2019-08-03] MEDS ORDERED: NICODERM PATCH TD ONE (15:07)
[2019-08-03] MEDS ORDERED: NS 1,000 ML IV ONE (16:28)
[2019-08-03] MEDS ORDERED: ZOFRAN PO PRN (16:28)
[2019-08-03] MEDS: DUONEB (A & A) INH SCH ×3 (16:28→23:28)
[2019-08-03] MEDS ORDERED: PNEUMOVAX 23 IM ONE (17:01)
[2019-08-03] MEDS ORDERED: FLU VACCINE IM ONE (17:01)
[2019-08-03] MEDS: SOLU-MEDROL IV SCH (18:32)
--- NOTE | 2019-08-03 20:02 | HISTORY AND PHYSICAL ---
HISTORY OF PRESENT ILLNESS: Ms. Walsh is a 58-year-old white female who comes to the emergency room with severe shortness of breath. She has a known case of COPD with emphysema and chronic bronchitis. She started getting more short of breath since yesterday and came this afternoon for further help. SOCIAL HISTORY: She is a chronic heavy smoker, smokes about a pack of cigarettes per day. Does not drink. ALLERGIES: She is not allergic to any medication. PAST SURGICAL HISTORY: She had history of cholecystectomy. REVIEW OF SYSTEMS: Other than shortness of breath it is negative. She has a mild cough. No hematemesis. PHYSICAL EXAMINATION: VITAL SIGNS: Temperature normal, pulse 104 per minute, respiratory rate 28 per minute, blood pressure 109/68. HEENT: Head normocephalic. NECK: Supple. JVP normal. ENT EXAMINATION: Unremarkable. There is no evidence of lymphadenopathy, thyroid enlargement, pedal edema, calf tenderness, anemia, cyanosis or clubbing. Pedal pulses well felt. BREAST EXAM: Not done. CHEST: Normal inspection. LUNGS: Reveal bilateral expiratory wheezing. PMI in the normal position. HEART: Sounds normal. No murmur, gallop or rub noted. ABDOMEN: Nondistended. Hernial orifices normal. No guarding, rigidity, free fluid, masses, or organomegaly. Bowel sounds normal. RECTAL: Deferred. SUPERVISOR CUTTING AND BONING: Higher functions normal. Cranial nerves normal. Motor and sensory system examination unremarkable. Deep tendon reflexes normal. Plantars downgoing. SKULL AND SPINE EXAMINATION: Normal for age. No cerebellar signs or signs of meningeal irritation. LOCAL MOTOR EXAM: Unremarkable. SKIN: Unremarkable. CLINICAL IMPRESSION: 1. Acute bronchitis. 2. Chronic obstructive pulmonary disease. PLAN: Start IV Solu-Medrol as well as IV antibiotics and respiratory therapy. cc: Red Chin MD MTDD
[2019-08-04] MEDS: SOLU-MEDROL IV SCH ×4 (00:04→22:24)
[2019-08-04] MEDS: DUONEB (A & A) INH SCH ×5 (03:40→19:48)
--- NOTE | 2019-08-04 09:55 | PROGRESS NOTE ---
DATE: 08/04/2019 SUBJECTIVE: Ms. Walsh is feeling better. She has poor air entry with breathing. However, there is not much wheezing. PLAN: I am going to reduce the Solu-Medrol today. Overall condition is stable. cc: Red Chin MD
[2019-08-04] MEDS: ZITHROMAX 500 MG/NS 500 MG/250 ML IVPB IV SCH (14:01)
[2019-08-04] MEDS: TYLENOL PO PRN ×2 (14:07→22:32)
[2019-08-04] MEDS: ROCEPHIN 1 GM in NS 50 ML IV SCH (16:32)
[2019-08-05] MEDS: DUONEB (A & A) INH SCH ×7 (00:19→23:05)
[2019-08-05] MEDS: SOLU-MEDROL IV SCH ×2 (06:01→17:10)
--- NOTE | 2019-08-05 09:19 | PROGRESS NOTE ---
DATE: 08/05/2019 Ms. Walsh is feeling somewhat better. She has a lipomata cyst over the right buttock, which she showed me today. She still has some shortness of breath. We are continuing to reduce her Solu- Medrol, which we will reduce to 40 mg every 12 hours. Hopefully, if she is better, will discharge her with prednisone tablets tomorrow. cc: Red Chin MD
[2019-08-05] MEDS: ZITHROMAX 500 MG/NS 500 MG/250 ML IVPB IV SCH (13:44)
[2019-08-05] MEDS: NICODERM PATCH TD SCH (15:42)
[2019-08-05] MEDS: ROCEPHIN 1 GM in NS 50 ML IV SCH (17:10)
[2019-08-05] MEDS: TYLENOL PO PRN (17:15)
[2019-08-06] MEDS: DUONEB (A & A) INH SCH ×3 (03:19→11:29)
[2019-08-06] MEDS: SOLU-MEDROL IV SCH (06:02)
[2019-08-06] MEDS: NICODERM PATCH TD SCH (10:17)
[2019-08-06 12:28] VITALS: BP 126/79
--- NOTE | 2019-08-06 13:39 | PROGRESS NOTE ---
DATE: 08/06/2019 Ms. Walsh is feeling better. Lungs sound clear. There is no wheezing. She has been getting tapering doses of Solu-Medrol. I feel like she can be discharged today. Will discharge her with the prednisone and Keflex. cc: Red Chin MD
--- NOTE | 2019-08-06 22:23 | DISCHARGE SUMMARY ---
ADMISSION DATE: 08/03/2019 DISCHARGE DATE: 08/06/2019 Ms. Walsh is a 58 -year-old white female who was admitted on 08/03/2019. She has been discharged on 08/06/2019. Ms. Walsh has a known case of COPD, was admitted with acute exacerbation. The EKG revealed sinus tachycardia, right atrial enlargement. Chest x-ray showed hyperexpanded lung [place]. Heart was not enlarged. Vessels are small. No infiltrates or effusions were noted. LAB DATA: CBC revealed leukocytosis, hemoglobin was 14.7, hematocrit 43.6, and CBC showed white count of 11.28. Arterial blood gases were pH 7.44, pCO2 of 39, PO2 is 51, and electrolytes were normal. Had a urinalysis that was unremarkable. COURSE IN THE HOSPITAL: She was treated with tapering dose of Solu-Medrol, IV azithromycin, as well as IV Rocephin. She is feeling better. I am going to discharge her with a prescription of prednisone 10 mg daily and give her Keflex for 500 mg t.i.d. for 7 days. She will be seen in the office in about 7 days. FINAL DIAGNOSES: Acute exacerbation of COPD. cc: Red Chin MD
== END 2019-08-06 13:39 | disposition home or self-care (01) | DRG 202 ==
LOC: SUPCPDRO → ED 12:15 → EDIPHOLD 12:15 → OBSVTOIN 16:18 → 1N 18:52
PROVIDERS: ADMIT Internal Medicine; ATTEND Internal Medicine